=== PATIENT | male | born 1980 | race Caucasian/White ===

== ENCOUNTER → 2018-04-09 | Outpatient (CLI) | payer MEDICAID | LOC: FIMAGING 17:37 | PROVIDERS: ATTEND Physician Assistant | DX: Z98.1 Arthrodesis status (principal); M99.71 Connective tissue and disc stenosis of intervertebral foramina of cervical region; M50.223 Other cervical disc displacement at C6-C7 level; G95.89 Other specified diseases of spinal cord ==

== ENCOUNTER 2018-07-26 13:40 | Emergency (ER) | payer MEDICAID ==
[2018-07-26] MEDS ORDERED: ONDANSETRON 4 MG/2 ML VIAL IVP ONE (14:58)
[2018-07-26] MEDS ORDERED: FAMOTIDINE 20 MG/NACL 50 ML IV ONE (14:58)
[2018-07-26] MEDS ORDERED: NS 1,000 ML IV ONE ×2 (14:58)
[2018-07-26 15:05] LABS: PLATELET COUNT 185 10^3/uL (150-400)
[2018-07-26] MEDS ORDERED: PROMETHAZINE HCL 25 MG/ML INJ IVP ONE (15:05)
--- NOTE | 2018-07-26 15:14 | EDPHY ---
H & P Time Seen by Provider: 07/26/18 14:48 HPI/ROS: HPI Vomiting. Back spasms. 37-year-old male by private vehicle with his co-worker. This patient reports that about 2 hr prior to arrival he became very nauseous and started vomiting. He reports multiple episodes of nonbilious, nonbloody vomiting over the last 2 hr. He denies any ingestion. He states that his last meal was last night. He denies any significant associated abdominal pain. He has not had any diarrhea. No bloody or melenic stool. Last bowel movement was yesterday. He also reports feeling lightheaded and also having back spasms throughout his mid back. ROS: Constitutional: No fever, no chills. No weakness. Eyes: No discharge. No changes in vision. ENT: No sore throat. No nasal congestion or rhinorrhea. Respiratory: No cough. No shortness of breath. Cardiac: No chest pain, no palpitations. Gastrointestinal: No abdominal pain, as above, no diarrhea. Genitourinary: No hematuria. No dysuria or increased frequency with urination. Musculoskeletal: As above. Skin: No rashes. Neurological: No headache. No focal weakness or altered sensation. Past medical history: Diskectomy C5-C6. History of chronic back pain. Social history: Nonsmoker. Works a [employer]. No alcohol. Here with his co-worker. Physical Exam: General Appearance: Alert, is not in distress. Laying supine. This patient is responding to questions appropriately and in full sentences. This patient appears well-hydrated and well-nourished. Eyes: Pupils equal and round no pallor or injection. No lid edema, erythema or injection. Respiratory: There are no retractions, lungs are clear to auscultation with good air movement bilaterally. Cardiovascular: Regular rate and rhythm. No murmur. Gastrointestinal: Abdomen is soft and nontender, no masses, bowel sounds normal. No focal tenderness at McBurney's point. No Solis sign. Neurological: Motor sensory function is grossly intact. Cranial nerves are normal. Gait is normal. Skin: Warm and dry, no rashes. Musculoskeletal: Neck is supple and nontender. Vague and mild mid thoracic paraspinal tenderness on palpation. No midline cervical, thoracic, lumbar tenderness on palpation. Extremities are symmetrical. All joints range without pain or impingement. Psychiatric: No agitation. No depression. Database: EKG: EKG time is 3:14 p.m.; EKG shows a narrow complex normal sinus rhythm with sinus arrhythmia with a ventricular rate of 65. The AL, QRS, QT intervals are within normal limits. There are no ST-T wave changes indicative of ischemic or injury pattern. No evidence of right heart strain. No evidence of Brugada syndrome, WPW, hypertrophic cardiomyopathy. Interpreted by me. Imaging: Procedures: Emergency department course: Triage vital signs reviewed and are normal. IV was placed. He will be started on IV normal saline with 1-2 L to be given over the next 1-2 hours. He will initially be given 6.25 mg of IV Phenergan, 4 mg of IV Zofran and 20 mg of IV Pepcid for his nausea and vomiting. 4:20 p.m., the patient was re-evaluated, resting comfortably at this time. He tells me that he is feeling much better. Repeat abdominal exam is soft, nontender nondistended. He has had 2 L of IV normal saline. He is currently tolerating oral fluids. He feels comfortable going home and I feel he is safe for discharge. His friend will drive him home. I will prescribe him Zofran for treatment of nausea. Follow-up and return to emergency department precautions have been reviewed with him. All of his questions were answered. He was discharged from the emergency department in good condition. Differential Diagnosis: The differential diagnosis on this patient includes but is not limited to food borne illness viral gastritis. Bowel obstruction, pancreatitis, cholecystitis, bowel obstruction, volvulus, other surgical etiology unlikely. This represents a partial list of diagnoses considered. These considerations are based on history, physical exam, past history, reassessment and diagnostic testing. Smoking Status: Never smoked Constitutional: Initial Vital Signs Temperature (C) 36.6 C 07/26/18 13:49 Heart Rate 84 07/26/18 13:49 Respiratory Rate 19 07/26/18 13:49 Blood Pressure 108/70 07/26/18 13:49 O2 Sat (%) 100 07/26/18 13:49 O2 Delivery Mode Room Air Allergies/Adverse Reactions: No Known Allergies Allergy (Unverified 07/26/18 13:48) Home Medications: Medication Instructions Recorded Ondansetron Odt [Zofran Odt 4 mg 4 mg PO Q4PRN PRN #10 tab 07/26/18 (*)] Medical Decision Making - Data Points Laboratory Results: Laboratory Results 07/26/18 14:55 07/26/18 14:55 07/26/18 07/26/18 14:55 14:55 WBC 9.76 10^3/uL H 10^3/uL (3.80-9.50) RBC 5.25 10^6/uL 10^6/uL (4.40-6.38) Hgb 15.8 g/dL g/dL (13.7-17.5) Hct 46.5 % % (40.0-51.0) MCV 88.6 fL fL (81.5-99.8) MCH 30.1 pg pg (27.9-34.1) MCHC 34.0 g/dL g/dL (32.4-36.7) RDW 12.5 % % (11.5-15.2) Plt Count 185 10^3/uL 10^3/uL (150-400) MPV 11.0 fL fL (8.7-11.7) Neut % (Auto) 86.0 % H % (39.3-74.2) Lymph % (Auto) 8.6 % L % (15.0-45.0) Wood % (Auto) 4.4 % L % (4.5-13.0) Eos % (Auto) 0.3 % L % (0.6-7.6) Baso % (Auto) 0.3 % % (0.3-1.7) Nucleat RBC Rel Count 0.0 % % (0.0-0.2) Absolute Neuts (auto) 8.39 10^3/uL H 10^3/uL (1.70-6.50) Absolute Lymphs (auto) 0.84 10^3/uL L 10^3/uL (1.00-3.00) Absolute Monos (auto) 0.43 10^3/uL 10^3/uL (0.30-0.80) Absolute Eos (auto) 0.03 10^3/uL 10^3/uL (0.03-0.40) Absolute Basos (auto) 0.03 10^3/uL 10^3/uL (0.02-0.10) Absolute Nucleated RBC 0.00 10^3/uL 10^3/uL (0-0.01) Immature Gran % 0.4 % % (0.0-1.1) Immature Gran # 0.04 10^3/uL 10^3/uL (0.00-0.10) Sodium 140 mEq/L mEq/L (135-145) Potassium 3.8 mEq/L mEq/L (3.5-5.2) Chloride 101 mEq/L mEq/L (97-110) Carbon Dioxide 25 mEq/l mEq/l (22-31) Anion Gap 14 mEq/L mEq/L (6-14) BUN 16 mg/dL mg/dL (7-23) Creatinine 0.9 mg/dL mg/dL (0.7-1.3) Estimated GFR > 60 Glucose 102 mg/dL H mg/dL (70-100) Calcium 10.5 mg/dL H mg/dL (8.5-10.4) Total Bilirubin 1.2 mg/dL mg/dL (0.1-1.4) Conjugated Bilirubin 0.3 mg/dL mg/dL (0.0-0.5) Unconjugated Bilirubin 0.9 mg/dL mg/dL (0.0-1.1) AST 29 IU/L IU/L (17-59) ALT 38 IU/L IU/L (21-72) Alkaline Phosphatase 57 IU/L IU/L (38-126) Total Protein 8.0 g/dL g/dL (6.3-8.2) Albumin 5.1 g/dL H g/dL (3.5-5.0) Lipase 92 IU/L IU/L (23-300) Medications Given: Discontinued Medications Sodium Chloride (Ns) 1,000 mls @ 0 mls/hr IV EDNOW ONE; Wide Open PRN Reason: Protocol Stop: 07/26/18 14:59 Last Admin: 07/26/18 15:20 Dose: 1,000 mls Sodium Chloride (Ns) 1,000 mls @ 0 mls/hr IV EDNOW ONE; Wide Open PRN Reason: Protocol Stop: 07/26/18 14:59 Last Admin: 07/26/18 15:20 Dose: 1,000 mls Famotidine/Sodium Chloride (Pepcid 20 Mg (Premix)) 50 mls @ 200 mls/hr IV EDNOW ONE Stop: 07/26/18 15:12 Last Admin: 07/26/18 15:23 Dose: 50 mls Ondansetron HCl (Zofran) 4 mg IVP EDNOW ONE Stop: 07/26/18 14:59 Last Admin: 07/26/18 15:21 Dose: 4 mg Promethazine HCl (Phenergan) 6.25 mg IVP EDNOW ONE Stop: 07/26/18 15:06 Last Admin: 07/26/18 15:21 Dose: 6.25 mg Departure - Departure Disposition: Home, Routine, Self-Care Clinical Impression: Nausea and vomiting Condition: Good Instructions: Acute Nausea and Vomiting (ED) Additional Instructions: Read and follow provided instructions. Follow-up with your primary care physician in 1-2 days for re-evaluation. Take medication as prescribed for nausea. Return to the emergency department for worsening symptoms, worsening abdominal pain, vomiting and inability to keep fluids down despite medications or other serious concerns. Referrals: NONE *PRIMARY CARE P,. [Primary Care Provider] - As per Instructions Prescriptions: Ondansetron Odt [Zofran Odt 4 mg (*)] 4 mg PO Q4PRN PRN #10 tab PRN Reason: For Nausea & Vomiting
[2018-07-26 16:32] VITALS: BP 128/76
--- NOTE | 2018-07-26 21:02 | CPEKG ---
Test Reason : OPEN Blood Pressure : / mmHG Vent. Rate : 065 BPM Atrial Rate : 000 BPM P-R Int : 187 ms QRS Dur : 099 ms QT Int : 411 ms P-R-T Axes : 072 072 062 degrees QTc Int : 428 ms Sinus arrhythmia Confirmed by Juan R Hayden ([id number] on 07/26/2018 9:01:44 PM Referred By: JuanR Hayden Confirmed By:Juan R Hayden
== END 2018-07-26 16:35 | disposition home or self-care (01) ==
DX: R11.2 Nausea with vomiting, unspecified (principal); M54.5 Low back pain; G89.29 Other chronic pain; E86.9 Volume depletion, unspecified
CPT/HCPCS: 96374; J2405; J2550